=== PATIENT | female | born 1955 | race Caucasian/White ===

== ENCOUNTER 2021-12-21 08:25 | Day surgery (SDC) | payer MEDICARE ==
[~2021-12-21] VITALS: Ht 154.9 cm; Wt 87.3 kg
[~2021-12-21 08:25] MED LIST: CLOBETASOL PROP15 G1 TOP; DOXYCYCLINE HY100 MG PO; ULTRAM50 MG PO
--- NOTE | 2021-12-21 10:36 | NUR ---
12/21/21 1036 Lory Meredith 1031 PATIENT ARRIVES TO PACU AWAKE BUT DROWSY. DENIES PAIN OR NAUSEA. RESP EVEN AND UNLABORED, NC ON @ 2 LITERS. TURNED OFF ON ARRIVAL TO PACU.
--- NOTE | 2021-12-22 06:11 | OR ---
[facility] [address] [place], [place] [address] Signed DATE OF OPERATION: 12/21/2021 SURGEON: Abdon Washington MD PREOPERATIVE DIAGNOSES: 1. Personal history of colonic polyps, age 46. 2. Internal hemorrhoids. 3. Diverticulosis. 4. History of irritable bowel syndrome with diarrhea. POSTOPERATIVE DIAGNOSES: 1. Moderate internal and external hemorrhoids. 2. Minimal to moderate sigmoid diverticulosis. 3. 4 mm polyp mid rectum. 4. 3 mm polyp at 22 cm. 5. 3 mm polyp at 85 cm. 6. 4 mm polyp at 42 cm. PROCEDURE: Colonoscopy with hot biopsy. ESTIMATED BLOOD LOSS: None. INDICATIONS: Tawanna is a 66-year-old obese female, asked to see me for followup colonoscopy. She had been to our [facility] back in 2001 at the age of 46. Apparently, she had polyps removed at that time. Apparently, she was awake during that procedure and said it was quite miserable. She also describes postoperative nausea and vomiting. She has no family history of colon cancer or polyps. She underwent repeat colonoscopy with Dr. Escalona in 2010 at the age of 55. She had two hyperplastic polyps removed at that time. She had internal hemorrhoids along with diverticulosis. She did well with Versed and fentanyl. There was mention that she would follow up in three years. However with the COVID pandemic, she wanted to wait and come at this time. She also describes irritable bowel syndrome with diarrhea long before her gallbladder got removed in [address] Escalona. Currently, she has no lower GI complaints. She gives no family history of colon cancer or polyps. In the office, I gave her a pamphlet on colonoscopy. We reviewed the nature of that test. There is risk including, but not limited to gas bloating, crampy abdominal pain, bleeding, perforation requiring surgery, and missed diagnosis. We also reviewed the need for IV conscious sedation. She had expressed understanding and wished Electronically Signed By: ABDON WASHINGTON MD 12/22/21 0611 PATIENT NAME: TAWANNA COHEN OPERATIVE REPORT DATE OF : 51 REPORT #: [id number] PHYSICIAN: ADBON WASHINGTON MD PCP: ZOFIA SANABRIA PA-C REPORT IS CONFIDENTIAL AND NOT TO BE RELEASED WITHOUT AUTHORIZATION [facility] [address] [place], [place] [address] Signed to proceed. She told me her friend would take her home afterwards. PROCEDURE NOTE: Tawanna was taken into our endoscopy suite and placed in the left lateral decubitus position. She was given a total of 7 mg of Versed and 100 mcg of fentanyl. A digital rectal exam was performed and she does have moderate circumferential external hemorrhoids. She had good sphincter tone. The adult colonoscope was introduced and advanced all the way around into the cecum under direct visualization of camera without difficulty. Her prep was quite excellent. We could easily see the appendiceal orifice and the ileocecal valve. The above-mentioned polyps had been easily removed with the help of hot biopsy forceps. She does have diverticulosis. They are moderate in size, minimal to moderate in number, and scattered about. Upon retroflexion of the scope, she does have moderate internal hemorrhoid columns as well. After this, the gas was suctioned out and the colonoscope removed. Tawanna tolerated procedure quite well. RECOMMENDATIONS: I will see Tawanna back in my office in 7 to 14 days to review her results. She will likely stay on a 10-year rotation but possibly 5-year rotation. Abdon Washington MD [facility] /[id number] cc: SINA Cary MD Copies: ABDON WASHINGTON MD ~ Electronically Signed By: ABDON WASHINGTON MD 12/22/21 0611 PATIENT NAME: TAWANNA COHEN OPERATIVE REPORT DATE OF : 51 REPORT #: [id number] PHYSICIAN: ABDON WASHINGTON MD PCP: ZOFIA SANABRIA PA-C REPORT IS CONFIDENTIAL AND NOT TO BE RELEASED WITHOUT AUTHORIZATION
--- NOTE | 2021-12-22 17:54 | PATH ---
[facility] [address] [facility] [place], [place] [address] Signed SPECIMEN(S): A RECTAL POLYP SPECIMEN(S): B POLYP AT 22 CM SPECIMEN(S): C POLYP AT 85 CM SPECIMEN(S): D POLYP AT 42 CM SPECIMEN SOURCE: A. RECTAL POLYP B. POLYP AT 22 CM C. POLYP AT 85 CM D. POLYP AT 42 CM CLINICAL HISTORY: 2011: Hyperplastic polyps x 2 FINAL PATHOLOGIC DIAGNOSIS: A. Rectum, polyp, polypectomy: - Hyperplastic polyp. - Negative for dysplasia or malignancy. B. Colon, polyp at 22 cm, polypectomy: - Hyperplastic polyp. - Negative for dysplasia or malignancy. C. Colon, polyp at 85 cm, polypectomy: - Colonic mucosa with no histopathologic abnormality. - Negative for dysplasia or malignancy. D. Colon, polyp at 42 cm, polypectomy: - Cauterized colonic mucosa with no definitive histopathologic abnormality. - Negative for dysplasia or malignancy. COMMENT: Regarding specimens C and D: Multiple additional deeper levels were examined. The degree of cautery artifact in the polyp at 42 cm precludes complete histologic changes of the surface epithelium. NAL:[facility]:C2NR MICROSCOPIC EXAMINATION: Histologic sections of all submitted blocks are examined by light microscopy. These findings, together with the gross examination, support the pathologic diagnosis. GROSS DESCRIPTION: Four specimens are received in four containers, labeled "DL." PATIENT NAME: JUAN MANUEL COHEN PATHOLOGY DATE OF : 51 REPORT #: [id number] PHYSICIAN: FELIZ PATHOLOGY PCP: ZOFIA SANABRIA PA-C REPORT IS CONFIDENTIAL AND NOT TO BE RELEASED WITHOUT AUTHORIZATION [facility] [address] [place], [place] [address] Signed A. The specimen, labeled "DL, rectal polyp," is received in formalin and consists of one navarro soft tissue fragment that measures 0.3 cm in greatest dimension. The specimen is entirely submitted in cassette (A1). B. The specimen, labeled "DL, polyp at 22 cm," is received in formalin and consists of one navarro soft tissue fragment that measures 0.3 cm in greatest dimension. The specimen is entirely submitted in cassette (B1). C. The specimen, labeled "DL, polyp at 85 cm," is received in formalin and consists of one navarro soft tissue fragment that measures 0.3 cm in greatest dimension. The specimen is entirely submitted in cassette (C1). D. The specimen, labeled "DL, polyp at 42 cm," is received in formalin and consists of one navarro soft tissue fragment that measures 0.3 cm in greatest dimension. The specimen is entirely submitted in cassette (D1). AT (under the direct supervision of a pathologist) The Gross Description was prepared using a voice recognition system. The report was reviewed for accuracy; however, sound-alike word errors, addition and/or deletions may occur. If there is any question about this report, please contact Client Services. PERFORMING LABORATORY: The technical component was performed by [facility], [address] [place] [id number] (CLIA# [id number]). Professional interpretation was performed by [facility], [address] [address] (CLIA# [id number]). Diagnostician: Amelia Velazquez MD Pathologist Electronically Signed 12/22/2021 Copies: ~ PATIENT NAME: JUAN MANUEL COHEN PATHOLOGY DATE OF : 51 REPORT #: [id number] PHYSICIAN: FELIZ PATHOLOGY PCP: ZOFIA SANABRIA PA-C REPORT IS CONFIDENTIAL AND NOT TO BE RELEASED WITHOUT AUTHORIZATION
== END 2021-12-21 11:05 | disposition home or self-care (01) ==
LOC: OPS 08:25 → DS 08:32 → OPS 09:15 → DS 10:30 → OPS 11:05
PROVIDERS: ATTEND Colon & Rectal Surgery
PROC: 0DBE8ZX Excision of Large Intestine, Via Natural or Artificial Opening Endoscopic, Diagnostic (ICD-10-PCS; principal; 2021-12-21 09:50)
DX: Z12.11 Encounter for screening for malignant neoplasm of colon (principal); K62.1 Rectal polyp; K63.5 Polyp of colon; E66.9 Obesity, unspecified; N18.30 Chronic kidney disease, stage 3 unspecified; I12.9 Hypertensive chronic kidney disease with stage 1 through stage 4 chronic kidney disease, or unspecified chronic kidney disease; E11.22 Type 2 diabetes mellitus with diabetic chronic kidney disease; Z68.36 Body mass index [BMI] 36.0-36.9, adult; Z88.5 Allergy status to narcotic agent; K64.0 First degree hemorrhoids; K57.30 Diverticulosis of large intestine without perforation or abscess without bleeding; K64.4 Residual hemorrhoidal skin tags; Z87.19 Personal history of other diseases of the digestive system
CPT/HCPCS: 99153; G0500; J2250; J3010; J7121